=== PATIENT | female | born 1975 | race Caucasian/White ===

== ENCOUNTER 2017-03-19 05:10 | Emergency (ER) | payer MEDICAID ==
--- NOTE | 2017-03-19 05:53 | ERNOTE ---
ER Female HPI Stated Complaint: ABD PAIN Presenting Symptoms: other - left flank Time Seen by Provider: 03/19/17 05:31 Source: patient Exam Limitations: no limitations Immunizations: IMMUNIZATION HX Immunizations Up to Date Yes Allergies/Adverse Reactions: Allergies No Known Allergies Allergy (Unverified 03/19/17 05:20) Home Medications: HOME MEDICATIONS Sulfamethoxazole/Trimethoprim [Bactrim Ds] 1 tab PO BID #14 tab 03/19/17 [Last Taken Unknown] - History of Present Illness Narrative: Pt states she began to have left flank pain at 22:00 last night. She hoped that she could sleep it off but awoke around 03:00 with pain that is crampy and sharp at times and dull and constant in between Timing: Present: constant, intermittent Quality: Present: moderate, severe, cramping, dullness, sharpness Onset Location: Present: left flank Radiation: Present: none Activities at Onset: Present: none Prior Abdominal Problems: Present: none Modifying Factors - (Improves): Present: other - standing Modifying Factors - (Worsens): Present: lying down Review of Systems - Review of Systems Constitutional: Present: fatigue. Absent: recent illness, fever, chills EYE: Present: no symptoms reported ENT: Present: no symptoms reported Respiratory: Present: no symptoms reported Cardiology: Present: no symptoms reported Gastrointestinal/Abdominal: Present: eating less, drinking less. Absent: nausea , vomiting Genitourinary: Present: See HPI Musculoskeletal: Present: no symptoms reported Skin: Present: no symptoms reported - Patient's Past Medical History Patient History - Medical: No pertinent hx Patient History - Cardiac/Respiratory: Hypertension Patient History - Cancer: No Hx of Cancer Patient History - Surgical Procedures: , Tubal Ligation Patient History - Other: None LMP (females 10-50): 3 months - Social History Living Situations: significant other Abuse History: No History of abuse Psych History: No pertinent hx Smoking Status: Current every day smoker Have you smoked in the past 12 months: Yes Do you dip or chew tobacco: No Patient requests Smoking Cessation Consult: No Alcohol Use: occasionally Drug Use: none - Immunizations Immunizations Up to Date: Yes Physical Exam - Physical Exam General Appearance: Present: wd/wn, alert, mild distress Eye Exam: Normal inspection: bilateral, PERRL: bilateral Ears, Nose, Throat: Present: normal ENT inspection Neck: Present: normal inspection, nontender Respiratory: Present: no respiratory distress, no accessory muscle use Gastrointestinal/Abdominal: Present: normal bowel sounds, nondistended, soft. Absent: tenderness, guarding, rebound Back Exam: Present: normal inspection, normal range of motion, no vertebral tenderness Extremity Exam: Present: normal inspection, normal range of motion, no edema Neurological Exam: Present: alert, oriented, normal mood/affect Skin Exam: Present: normal color, warm/dry Lymphatic Exam: Present: no adenopathy ED Progress - Results and Orders Patient's Lab Results:: I have reviewed the patient's lab results. Results and Orders: Laboratory Tests 03/19/17 03/19/17 03/19/17 05:23 05:55 05:55 WBC 9.2 Hgb 12.9 Hct 39.5 Plt Count 297 Sodium 142 Potassium 3.9 Chloride 105 Carbon Dioxide 31.8 Anion Gap 9.1 BUN 11 Creatinine 0.75 Random Glucose 99 Calcium 9.2 Total Bilirubin 0.2 AST 20 ALT 29 Alkaline Phosphatase 63 Total Protein 7.3 Albumin 4.0 Urine Color Brown Urine Appearance Cloudy Urine pH 6.5 Ur Specific [place] 1.020 Urine Protein 100 H Urine Glucose (UA) Negative Urine Ketones 5 Urine Blood 250 H Urine Nitrate Positive H Urine Bilirubin Negative Prot Sulfosalicylic Acd QNS Urine Urobilinogen 2.0 H Ur Leukocyte Esterase 75 H Urine RBC >50 H Urine WBC 5-10 H Ur Epithelial Cells >25 H Urine Bacteria 2+ H Urine Culture Comments Culture to follow - Vital Signs Patient's Vital Signs:: I have reviewed the patient's vital signs. Vital Signs: Vital Signs 03/19/17 05:14 Temperature 36.2 C L Pulse Rate 86 Respiratory 16 Rate Blood Pressure 119/88 O2 Sat by Pulse 97 Oximetry - Progress/Reassessment Chief Complaint: Genitourinary Problem Departure Clinical Impression: Urinary tract infection Qualifiers: Urinary tract infection type: acute cystitis Hematuria presence: with hematuria Qualified Code(s): N30.01 - Acute cystitis with hematuria - Departure Disposition: Home self-care Condition: Good Instructions: Urinary Tract Infection, Adult, [id number] Prescriptions: Sulfamethoxazole/Trimethoprim [Bactrim Ds] 1 tab PO BID #14 tab
[2017-03-19 05:56] LABS: Urine Bilirubin Negative (NEGATIVE); Urine Blood 250 /ul (NEGATIVE); Urine Ketone 5 mg/dL (NEGATIVE); Urine Protein 100 mg/dL (NEGATIVE); Urine pH 6.5 pH (5.0-7.0)
[2017-03-19 05:59] LABS: Hematocrit 39.5 % (37.0-47.0); Hemoglobin 12.9 gm/dL (12.5-16.0); Mean Cell Volume 88.6 fl (78-100); Mean Corpuscular Hemoglobin 28.9 pg (27-31); Mean Corpuscular Hgb Conc 32.7 g/dl (32-36); Mean Platelet Volume 9.5 fl (6.0-9.5); Neutrophil % 65.9 % (42-75.0); Platelet Count 297 K/mm3 (150-450); Red Blood Count 4.46 M/mm3 (4.2-5.4); Red Cell Distribution Width 12.9 % (11.5-14.0); White Blood Count 9.2 K/mm3 (4.0-10.5)
[2017-03-19 06:13] LABS: Urine Appearance Cloudy; Urine Bacteria 2+; Urine Color Brown; Urine Nitrite Positive (NEGATIVE); Urine RBC >50 /hpf (0-5)
[2017-03-19 06:13] LABS: Anion Gap 9.1 mmol/L (6.8-13.8); BUN/Creatinine Ratio 14.7 (9.0-21.6); Bilirubin, Total 0.2 mg/dL (0.0-1.1); Ca. Corrected For Albumin 8.9 mg/dL (8.4-10.2); Calcium * 9.2 mg/dL (7.9-10.9); Carbon Dioxide 31.8 mmol/L (24-32.6); Potassium 3.9 mmol/L (3.4-4.6); Total Protein 7.3 gm/dL (6.2-8.2)
[2017-03-19] MEDS ORDERED: SULFAMETHOXAZOLE/TRIMETHOPRIM 1 TAB TABLET PO ONE (06:49)
[2017-03-19] MEDS ORDERED: SULFAMETHOXAZOLE/TRIMETHOPRIM 1 TAB TABLET ONE (06:58)
[2017-03-19 07:09] VITALS: BP 146/102
== END 2017-03-19 07:15 | disposition home or self-care (01) ==
LOC: ER 05:10
DX: N30.01 Acute cystitis with hematuria (principal); Z72.0 Tobacco use